=== PATIENT | male | born 1950 | race Caucasian/White ===

== ENCOUNTER 2019-01-23 08:33 | Day surgery (SDC) | payer OTHER ==
[2019-01-23] VITALS (10 sets, daily range): BP systolic 133–142; BP diastolic 60–65; PULSE 56–58; RESP 16–18; Ht 167.6 cm; Wt 72.3 kg
[~2019-01-23] VITALS: Ht 167.6 cm; Wt 72.3 kg
[~2019-01-23 08:33] MED LIST: ACETAMINOPHEN 325 MG TAB (POST-OP) PO PRN; AMLO-147 PO; ASPI-817 PO; ATOR40TA68 PO; CARV3.1260 PO; CIPROFLOXACIN 0.3% 2.5 ML OPH (PRE-OP) OPER SCH; CPR3OO3.5 BOTH EYES; DICL2.5D11 BOTH EYES; DICLOFENAC 0.1% 2.5 ML OPH (PRE-OP) OPER SCH; DOCU-159 PO; FAMO20TA18 PO; FURO-109 PO; FURO20TA3 PO; HYDR-3671 PO; HYDR-3672 PO; INSU100V14 SC; INSU100V3 IJ; ISOS20TA19 PO; NPH,100V SC; NPH,100V SQ; PHENYLephrine 2.5% 15 ML OPH (PRE-OP) OPER SCH; POTA-57 PO; RANO500T2 PO; SACU1TAB4 PO; TETRACAINE 0.5% 4 ML OPH (PRE-OP) OPER SCH; TROPICAMIDE 1% 15 ML OPH (PRE OP) OPER SCH
[2019-01-23] MEDS ORDERED: LIDOCAINE 1%/EPI 30 ML INJ ONE (09:52)
[2019-01-23] MEDS ORDERED: CYCLOPENTOLATE 1% 2 ML OPH (PRE-OP) OPER SCH (10:00)
--- NOTE | 2019-01-23 10:05 | PREAC ---
Date/Time of Note Date/Time of Note DATE: 01/23/19 TIME: 10:02 Anesthesia Eval and Record Evaluation Time Pre-Procedure Interview DATE: 01/23/19 TIME: 10:02 Age 68 Sex male NPO: 8 hrs Preoperative diagnosis Lt eye cataract Planned procedure Lt eye CE IOL implant Past Medical History Past Medical History: Includes Cardio: HTN, Dyslipidemia Endo: Diabetes Surgery & Anesthesia Issues No known issue Meds Anticoagulation: Yes Beta Toni within 24 hr: No Reason Beta Toni not given: Pt. not on B-Toni Reported Medications Ciprofloxacin Opht* (Ciloxan*) 0.3%-3.5 Opht Oint, 1 APPLIC BOTH EYES TID, EA 01/23/19 Diclofenac Sodium* (Diclofenac Oph*) 2.5 Ml Drops, 1 DROP BOTH EYES TID, #1 EA 01/23/19 Hydralazine Hcl* (Hydralazine Hcl*) 50 Mg Tab, 50 MG PO TID, #90 TAB 01/23/19 Carvedilol* (Carvedilol*) 3.125 Mg Tablet, 3.125 MG PO BID, #60 TAB 01/23/19 Famotidine* (Famotidine*) 20 Mg Tablet, 20 MG PO BID, #60 TAB 01/23/19 Amlodipine Besylate* (Amlodipine Besylate*) 10 Mg Tablet, 10 MG PO DAILY, #30 TAB 01/23/19 Sacubitril/Valsartan (Entresto 97 mg-103 mg Tablet) 1 Each Tablet, 1 EACH PO BID, TAB 01/23/19 Furosemide* (Furosemide*) 20 Mg Tablet, 20 MG PO DAILY, #60 TAB 01/23/19 Aspirin* (Aspirin* EC) 81 Mg Tablet.dr, 81 MG PO DAILY, TAB 01/23/19 Ranolazine* (Ranexa*) 500 Mg Tab.sr.12h, 500 MG PO Q12, TAB 01/23/19 Atorvastatin* (Atorvastatin*) 40 Mg Tablet, 40 MG PO QHS, #30 TAB 01/23/19 Insulin Regular, Human (Humulin R) 100 Unit/1 Ml Vial, 4 UNIT IJ DAILY PRN for NEEDED, VIAL 01/23/19 Insulin NPH Human Isophane (Humulin N) 100 Unit/1 Ml Vial, 10 UNIT SQ DAILY PRN for NEEDED, VIAL 01/23/19 Discontinued Reported Medications Docusate Sodium* (Docusate Sodium*) 100 Mg Capsule, 100 MG PO BID, CAP 05/11/15 Carvedilol* (Carvedilol*) 3.125 Mg Tablet, 3.125 MG PO BID, TAB 05/11/15 Nph, Human Insulin Isophane (Humulin N) 100 Units/Ml Vial, 10 UNIT SC BID, VIAL 05/11/15 Insulin Regular, Human (Humulin R) 100 Units/Ml Vial, 4 UNIT SC BID WITH MEALS, VIAL 05/11/15 Discontinued Scripts Potassium Chloride* (Klor-Con*) 20 Meq Tabsr, 40 MEQ PO DAILY, #30 TAB Prov:GENARO CLARK 05/19/15 Hydralazine Hcl* (Hydralazine Hcl*) 25 Mg Tab, 75 MG PO TID, #90 TAB Prov:GENARO CLARK 05/19/15 Isosorbide Dinitrate* (Isosorbide Dinitrate*) 20 Mg Tab, 20 MG PO TID, #90 TAB Prov:GENARO CLARK 05/19/15 Furosemide* (Lasix*) 40 Mg Tab, 40 MG PO BID DIURETICS, #60 TAB Prov:GENARO CLARK 05/19/15 Aspirin* (Aspirin* EC) 81 Mg Tabec, 81 MG PO DAILY, #30 Prov:GENARO CLARK 05/19/15 Current Medications Tetracaine HCl (Tetracaine 0.5% Steri-Unit Maricel) 1 drop Q5 MIN X3 OPER Last administered on 01/23/19at 09:51; Admin Dose 1 DROP; Start 01/23/19 at 07:00 Tropicamide (Mydriacyl 1%) 1 drop Q5 MIN X3 OPER Last administered on 01/23/19at 09:50; Admin Dose 1 DROP; Start 01/23/19 at 07:00 Phenylephrine HCl (Ak-Dilate 2.5%) 1 drop Q5 MIN X3 OPER Last administered on 01/23/19at 09:50; Admin Dose 1 DROP; Start 01/23/19 at 07:00 Diclofenac Sodium (Voltaren 0.1%) 1 drop Q5 MIN X3 OPER Last administered on 01/23/19at 09:50; Admin Dose 1 DROP; Start 01/23/19 at 07:00 Ciprofloxacin HCl (Ciloxan 0.3% Oph) 1 drop Q5 MIN X3 OPER Last administered on 01/23/19at 09:50; Admin Dose 1 DROP; Start 01/23/19 at 07:00 Acetaminophen (Tylenol Tab) 650 mg Q6H PRN PO PAIN; Start 01/23/19 at 07:00 Cyclopentolate HCl (Ak-Pentolate 1% Oph) 1 drop Q5 MIN X3 OPER Last administered on 01/23/19at 09:50; Admin Dose 1 DROP; Start 01/23/19 at 10:00 Meds reviewed: Yes Allergies Coded Allergies: No Known Allergy (Unverified , 01/23/19) Allergies Reviewed: Yes Labs/Studies Labs Reviewed: Reviewed by anesthesiologist test: N/A Studies: ECG Pre-procedure Exam Last vitals BP:134/67, P:68, Spo2:100%, T:98,8 Airway: Adequate mouth opening, Adequate thyromental dist Mallampati: Mallampati II Teeth: Normal Lung: Normal Heart: Normal ASA Physical Status ASA physical status: 3 Emergency: None Planned Anesthetic General/MAC: MAC Planned Pain Management Parenteral pain med, Local by surgeon Pre-operative Attestations Prior to commencing anesthesia and surgery, the patient was re-evaluated, there was verification of: *The patient's identity *The results of appropriate recent lab work and preoperative vital signs *The above evaluation not changing prior to induction *Anesthetic plan, risk benefits, alternative and complications discussed with patient/family; questions answered; patient/family understands, accepts and wishes to proceed. MK MABRY MD Jan 23, 2019 10:05
[2019-01-23] MEDS ORDERED: MIDAZOLAM 1 MG/ML 2 ML INJ ONE (10:21)
[2019-01-23] MEDS ORDERED: FENTAnyl 50 MCG/ML VIAL ONE (10:21)
--- NOTE | 2019-01-23 10:27 | HPN ---
Date/Time of Note Date/Time of Note DATE: 01/23/19 TIME: 10:26 Interval H&P Admission Note Pt. seen H&P reviewed: No system changes KEITH ZHANG MD Jan 23, 2019 10:26
[2019-01-23] MEDS ORDERED: TRYPAN BLUE 0.5 ML SYG IO ONE (10:37)
--- NOTE | 2019-01-23 11:16 | PAC ---
Date/Time of Note Date/Time of Note DATE: 01/23/19 TIME: 11:15 Post-Anesthesia Notes Post-Anesthesia Note Activity: WNL Respiratory function: WNL Cardiovascular function: WNL Mental status: Baseline Pain reasonably controlled: Yes Hydration appropriate: Yes Nausea/Vomiting absent: Yes Comments BP:138/64, P:68, Spo2:100%, T:98,8 MK MABRY MD Jan 23, 2019 11:16
--- NOTE | 2019-01-23 11:19 | OPR ---
Date/Time of Note Date/Time of Note DATE: 01/23/19 TIME: 11:13 Operative Report Procedure Date: Jan 23, 2019 Preoperative Diagnosis Visually significant combined forms of Cataract Left Eye Poor fundus reflex Left eye due advanced mature Cataract Postoperative Diagnosis Visually significant combined forms of Cataract Left Eye Poor fundus reflex Left eye due advanced mature Cataract Operation/Procedure Performed Phacoemulsification with Intraocular Lens Implantation Left Eye Vision Blue (Trypan Blue) staining of the Capsule Left eye Surgeon see signature line Petroleum Engineer Marco A Anesthesia Type: MAC Anesthesiologist: MK MABRY MD Tourniquet Time: none Estimated Blood Loss: none Transfusion none Specimen No Specimen was sent at all. Grafts/Implants IMPLANT: Jere Acrysof IOL Model [id number] Power : 20.0 D Tubes/Drains none Complications none Pt Condition Post Procedure: stable Disposition: PACU Indications INDICATIONS FOR SURGERY: Patient has visually significant Cataract in the operative eye affecting the activities of daily living. this has affected patients ability to perform some of the daily tasks such as reading, watching Television, and in some cases driving. The patient has tried a change of glasses, which have failed to provide the satisfactory improvement in vision. Procedure Description OPERATIVE REPORT: The patient was identified and brought to the pre-op area. The operative eye was identified and informed consent was obtained after the patient fully understood the risks, benefits and alternatives of the planned surgery. Three sequential applications of Mydriacyl 1%, Phenylephrine 2.5%, Tetracaine 1% and Ocuflox eyedrops were applied to the operative eye at 5 minute intervals. Patient was brought to the operating room and placed in a supine position. The monitoring equipment was attached and IV sedation was initiated by the Anesthesiologist. The Operative eye was cleaned , prepared and draped in a sterile fashion. The eyelid speculum was placed and microscope was aligned for good visualization. Side port incision of 1.1 mm was made at the limbus using a MVR blade and globe fixator. Preservative free Lidocaine 1% in BSS was injected to enhance the local anesthesia. a dispersive Viscoelastic substance was injected in the anterior chamber. A clear corneal Limbal Temporal incision was performed using a 2.4 mm angled Keratome blade in a biplanar configuration and about 2.5 mm long. A poor fundus reflex was noted due to a dense Cataract. To enhance the visualization of the Capsule Vision blue dye was applied over the Anterior Capsular surface and left in place for about 30 seconds. Excess dye was removed by injecting viscoelastic. Anterior Capsulorrhexis was initiated with a Cystotome and completed with Utrata's forceps to achieve a 5 mm round, continuous and curvilinear opening. Hydrodissection and hydrodelineation was performed to loosen up the nucleus and epinucleus by injecting BSS solution with a Hydrodissection canula. The nucleus was mobilized to rotate freely with a kuglin's hook. The phaco handpiece of the Je[employer] phaco machine was brought in the field. The nucleus was disassembled by using a modified Stop and Chop technique. Epinucleus was aspirated. Cortical material was aspirated with an I/A handpiece and angled soft tip aspirator. A foldable Intraocular lens of the chosen model was inserted in the folded position into the capsular bag and was allowed to open fully. The lens was rotated to achieve a good central position in the bag. The viscoelastic substance was fully removed using an I/A system. The incisions were sealed by a hydrostatic closure by injecting BSS. The incision was tested for leakage and was found to be sealed. The eyelid speculum was removed. Tobradex eye ointment and Oculflox eyedrops were instilled in the eye. Eye patch and eye shield were taped in place over closed eye.The patient tolerated the procedure very well without any complications.The patient was transferred to the recovery room in a stable condition for further monitoring. The patient was discharged to go home once the discharge criteria was met with written advice about post operative care and follow up appointment. KEITH ZHANG MD Jan 23, 2019 11:19
[2019-01-23] MEDS ORDERED: FENTAnyl 50 MCG/ML VIAL IV PRN (11:30)
[2019-01-23] MEDS ORDERED: ONDANSETRON 4 MG INJ IV PRN (11:30)
[2019-01-23] MEDS ORDERED: HYDROmorphONE 1 MG/5 ML IV SYRINGE IV PRN (11:30)
== END 2019-01-23 12:30 | disposition home or self-care (01) ==
LOC: SDS 08:33
PROVIDERS: ATTEND Ophthalmology
DX: H26.8 Other specified cataract (principal); I12.9 Hypertensive chronic kidney disease with stage 1 through stage 4 chronic kidney disease, or unspecified chronic kidney disease; E11.22 Type 2 diabetes mellitus with diabetic chronic kidney disease; N18.9 Chronic kidney disease, unspecified; Z79.4 Long term (current) use of insulin
CPT/HCPCS: 66984; 82962; J2250; J3010; V2632; Z7512; Z7610